=== PATIENT | female | born 1985 | race Caucasian/White ===

== ENCOUNTER → 2016-12-08 | Outpatient (CLI) | payer OTHER ==
--- NOTE | 2016-12-08 12:23 | REP ---
Left foot four views: There are no comparisons. There are deformities of the great toe. 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 There is deformity at the base of the proximal phalange. These findings could be old post-traumatic findings, congenital variation, or combination. Mineralization joint spaces are otherwise unremarkable. There is no acute fracture or dislocation. There are no calcifications or foreign bodies. Impression: Great toe deformities as described. Otherwise, negative left foot. Signed by Marbin Gonzalez MD 12/08/2016 12:15 P
== END ==
LOC: M WUC 11:32
PROVIDERS: ATTEND Physician Assistant
DX: M79.672 Pain in left foot (principal)